=== PATIENT | male | born 1975 | race Caucasian/White ===

== ENCOUNTER 2018-11-10 20:31 | Emergency (ER) | payer OTHER ==
[~2018-11-10] VITALS: Ht 170.2 cm; Wt 122.5 kg
[~2018-11-10 20:31] MED LIST: ASPIRIN325; COZAAR 50 MG TA50 M1 PO; IBUPROFEN 800800 MG PO; PERCOCET 5-3251 EACH PO; TOPROL XL200 MG PO
[2018-11-10] MEDS ORDERED: SYNTHROID112 MC1 (21:03)
[2018-11-10] MEDS ORDERED: CARVEDILOL12.5 MG (21:03)
[2018-11-10] MEDS ORDERED: IBUPROFEN 800800 M1 PO (21:41)
[2018-11-10] MEDS ORDERED: HYDROCODONE-AP1 EAC6 PO (21:41)
[2018-11-10] MEDS ORDERED: TESSALON PERLE100 MG PO (21:41)
[2018-11-10] MEDS ORDERED: PROMETHAZINE V120 ML PO (21:41)
[2018-11-10 22:16] VITALS: BP 145/78
== END 2018-11-10 22:17 | disposition home or self-care (01) ==
LOC: M.ERS 20:31
DX: M94.0 Chondrocostal junction syndrome [Tietze] (principal); J06.9 Acute upper respiratory infection, unspecified; F17.200 Nicotine dependence, unspecified, uncomplicated; I10 Essential (primary) hypertension; G43.909 Migraine, unspecified, not intractable, without status migrainosus; Z98.52 Vasectomy status

== ENCOUNTER → 2018-12-05 | Outpatient (CLI) | payer OTHER ==
[~2018-12-05] MED LIST changes: +CARVEDILOL12.5 MG; +HYDROCODONE-AP1 EAC6 PO; +IBUPROFEN 800800 M1 PO; +PROMETHAZINE V120 ML PO; +SYNTHROID112 MC1; +TESSALON PERLE100 MG PO
[2018-12-05 17:10] LABS: CALCIUM 9.3 mg/dL (8.5-10.1); CREATININE 1.4 mg/dL (0.6-1.3); POTASSIUM 3.7 mmol/L (3.5-5.1)
[2018-12-05 23:07] LABS: GLYCOHEMOGLOBIN (HGB A1C) 6.9 % (4.8-5.6)
== END ==
LOC: M.LAB 16:32
PROVIDERS: Nurse Practitioner
DX: Z13.1 Encounter for screening for diabetes mellitus (principal); R06.02 Shortness of breath; R06.01 Orthopnea

== ENCOUNTER → 2018-12-18 | Outpatient (CLI) | payer OTHER ==
--- NOTE | 2018-12-26 06:51 | SLEEP ---
[address] [address] SLEEP STUDY REPORT Name: ANKIT WHYTE Room: [facility]#: [id number] Admission: 12/18/18 Attend Phys: Venita Stanton RN Discharge: Date of : 71 Report #: [id number] THIS REPORT FOR: //name// CC: Ciro Stanton [employer] ENGINE SPECIALIST-C This study has been reviewed in its entirety by a board certified sleep specialist DATE OF SERVICE: 12/19/2018 REFERRING PHYSICIAN: Venita Stanton APRN. The patient is 43 years old who weighs 271 pounds with a BMI of 42.4. The patient underwent home sleep study performed by [facility]. Total recording time was 461 minutes. During the night study, the patient had 20 obstructive apneas, no central or mixed apneas and 118 hypopneas. The patient's apnea-hypopnea index was 18 per hour. No supine sleep was recorded. Nocturnal oximetry study revealed an average oxygen saturation of 88% with the lowest of 76%. 353 minutes were spent in oxygen saturation of less than 90%. EKG showed a mean heart rate of 65 beats per minute with a maximum of 103 beats per minute. IMPRESSION: 1. Moderate sleep apnea-hypopnea syndrome with an AHI of 18 per hour. 2. Moderate nocturnal hypoxia secondary to obstructive sleep apnea and suspected hypoventilation. RECOMMENDATIONS: 1. The patient would benefit from treatment of underlying sleep apnea with either an oral appliance or a trial of CPAP titration. 2. Once the patient is optimally treated, then follow up in 4-6 weeks to assess compliance and to document clinical improvement. 3. Weight loss is strongly advised. 4. Avoid [employer] depressants. 5. Cautioned regarding driving until symptoms of sleep apnea resolve with the above recommendation. <ELECTRONICALLY SIGNED> By: Hiram Mejia MD 12/26/18 [id number] 1943Acarlos Mejia MD /nt
== END ==
LOC: M.SLEEPLAB 12-17 09:00
DX: G47.33 Obstructive sleep apnea (adult) (pediatric) (principal); G47.34 Idiopathic sleep related nonobstructive alveolar hypoventilation; I10 Essential (primary) hypertension